=== PATIENT | female | born 1965 | race Hispanic/Latino ===

== ENCOUNTER 2016-09-20 20:38 | Emergency (ER) | payer OTHER ==
[~2016-09-20] VITALS: Ht 149.9 cm; Wt 68.0 kg
--- NOTE | 2016-09-20 21:14 | ED GENERAL ADULT ---
History of Present Illness General Chief Complaint: General Adult Stated Complaint: NUMBNESS TO FINGERS Source: patient Exam Limitations: no limitations Vital Signs & Intake/Output Vital Signs & Intake/Output Vital Signs Date Time Temp Pulse Resp B/P Pulse O2 O2 Flow FiO2 Ox Delivery Rate 09/20 2154 97.4 70 18 114/68 97 Room Air Room Air 09/20 2046 97.2 74 20 117/72 96 Room Air ED Intake and Output 09/21 0000 09/20 1200 Intake Total Output Total Balance Patient 150 lb Weight Allergies Coded Allergies: No Known Allergies (09/20/16) Reconcile Medications Gabapentin 300 MG CAPSULE 1 CAP PO DAILY neuropathy 300mg po daily x 1 day 300 mg po bid x 1 day then 300 mg po tid Triage Note: TRIAGE: PT TO ER C/C PAIN AND NUMBNESS TO BILATERAL HANDS AND TOES X COUPLE MONTHS, WORSE IN LAST MONTH. GETS WORSE WITH WRITING OR LAYING DOWN. Triage Nurses Notes Reviewed? yes Onset: Gradual Duration: 2 month Timing: recent history Injury Environment: home Severity: moderate Severity Numbers: 5 Modifying Factors: Improves With: other (rubbing). HPI: Patient is a 51-year-old female presenting to the emergency department with chief complaint of intermittent in pins and needles feeling to both hands and feet. She reports pain is intermittent. She reports that it lasts "a while" and it comes on. Rubbing her hands seems to improve the symptoms. Denies any trauma. She reports that she told her primary care physician about these symptoms that they did nothing for her. Positive family history of diabetes. She does not have diabetes. Does not take any medications for diabetes. Denies any travel. The pain stays in the hands and the feet. Denies any rashes. Denies nausea or vomiting fevers or chills chest pain or shortness of breath. Temperature does not affect the way her hands and feet feel. (JOHN CARDOZO,CARLEY) Past History Travel History Traveled to [place] past 21 day No Medical History Any Pertinent Medical History? see below for history Neurological: migraine EENT: NONE Cardiovascular: NONE Respiratory: asthma Gastrointestinal: NONE Hepatic: NONE Renal: NONE Musculoskeletal: NONE Psychiatric: anxiety, depression Endocrine: NONE Blood Disorders: NONE Cancer(s): NONE MANUFACTURING PRODUCTION TECHNICIAN/Reproductive: NONE Surgical History Surgical History: non-contributory Psychosocial History What is your primary language [place] Tobacco Use: Never used ETOH Use: denies use Illicit Drug Use: denies illicit drug use Family History Hx Contributory? No (CARLEY MONTEJO) Review of Systems Review of Systems Constitutional: Reports: no symptoms. Comments Review of systems: See HPI, All other systems negative. Constitutional, no chills fever or weight loss HEENT: No visual changes no sore throat no congestion Cardiovascular: No chest pain ,palpitation Skin, no jaundice no rashes Respiratory: No dyspnea cough sputum or hemoptysis GI: No nausea no vomiting : No dysuria No hematuria Muscle skeletal: no back pain, no neck pain, Neurologic: no confusion Psych: No increased stress anxiety or depression Immunology: No splenectomy or history of AIDS (CARLEY MONTEJO) Physical Exam Physical Exam General Appearance: well developed/nourished, no apparent distress, alert, awake , comfortable Comments: Well-developed well-nourished person in no acute distress HEENT: Pupils equally round and reactive to light and accommodation. Nose is atraumatic. Neck: Normal inspection Back: Nontender Cardiovascular: Regular rate and rhythms no murmurs rubs or gallops, normal JVP Respiratory: Chest nontender. No respiratory distress.breath sounds clear to auscultation bilaterally Extremity: No edema, no calf tenderness to palpation, normal and equal pulses. Full range of motion of both hands, both feet. Radial pulses are 2+ bilaterally. Pedal pulses are 2+ bilaterally. Capillary refills intact in upper and lower extremities bilaterally. Neuro: Alert oriented x3, motor sensory normal in the upper and lower extremities. Skin: No appreciable rash on exposed skin, skin is warm and dry. Psych: Mood and affect is normal, memory and judgment is normal. Core Measures ACS in differential dx? No CVA/TIA Diagnosis: No Severe Sepsis Present: No Septic Shock Present: No (CARLEY MONTEJO) Progress Differential Diagnoses I considered the following diagnoses in my evaluation of the patient: Peripheral neuropathy, raynauds, diabetes, nerve pain, medication reaction Plan of Care: Orders Procedure Date/time Status FingerStick- Glucose 09/20 2105 Active Initial ED EKG: none Comments: 09/20/2016 9:53:06 PM patient is well-appearing in no acute distress, no physical findings on exam. Patient describes burning tingling sensation intermittently in the hands and feet. Blood sugar is 88. Likely peripheral neuropathy. Patient will be started on gabapentin. She'll follow-up with her primary care physician. She'll return for any worsening symptoms or concerns. She was also informed that it potentially could be caused by her psychiatric medications. She needs to be seen by her psychiatrist and reevaluated. (CARLEY MONTEJO) Departure Departure Time of Disposition: 2139 Disposition: HOME OR SELF CARE Condition: Stable Clinical Impression Primary Impression: Peripheral neuralgia Referrals: LASHAY BARTLETT,EVELIO Lund (PCP/Family) Additional Instructions: Follow-up with your primary care physician call to make an appointment. Take gabapentin as prescribed to help with your nerve pain. Return for worsening symptoms or concerns. Departure Forms: Customer Survey General Discharge Information Prescriptions: Current Visit Scripts Gabapentin 1 CAP PO DAILY #60 CAP 300mg po daily x 1 day 300 mg po bid x 1 day then 300 mg po tid (CARLEY MONTEJO) PA/ORDER DETAILER Co-Sign Statement Statement: ED Attending supervision documentation- [] I saw and evaluated the patient. I have also reviewed all the pertinent lab results and diagnostic results. I agree with the findings and the plan of care as documented in the PA's/ORDER DETAILER's documentation. [X] I have reviewed the ED Record and agree with the PA's/ORDER DETAILER's documentation. [] Additions or exceptions (if any) to the PAs/ORDER DETAILER's note and plan are summarized below: [] (AMADOU BARTLETT,LINDA De Santiago) Critical Care Note Critical Care Note Critical Care Time: non-applicable (CARLEY MONTEJO)
[2016-09-20] MEDS ORDERED: GABAPENTIN300 M2 PO (21:45)
[2016-09-20 21:55] VITALS: BP 114/68
== END 2016-09-20 21:57 ==
LOC: ERH 20:38
DX: M79.2 Neuralgia and neuritis, unspecified (principal)